=== PATIENT | female | born 1970 | race Caucasian/White ===

== ENCOUNTER 2025-06-23 12:32 | Outpatient (REF) | payer OTHER, SELFPAY ==
[2025-06-23 17:52] LABS: MANUAL DIFF FLAG NO
[2025-06-23 18:08] LABS: Hematocrit 41.5 % (37.0-47.0); Hemoglobin 13.4 g/dl (12.0-16.0); Imm Gran Abs Auto 0.04 X10*3/uL (0.00-0.03); Imm Gran Pct Auto 0.5 % (0.0-0.4); Lymphocytes Absolute Auto 2.8 X10*3/uL (1.2-4.9); Mean Corpuscular HGB Conc 32.3 g/dl (31.0-35.0); Mean Corpuscular Hemoglobin 29.9 pg (27.0-33.0); Mean Corpuscular Volume 92.6 fL (80.0-98.0); NRBC Abs Auto 0.000 X10*3/uL (0.0-0.012); NRBC Pct Auto 0.0 /100WBC (0.0-0.2); Platelet Count 363 X10*3/uL (160-400); Red Blood Count 4.48 X10*6/uL (4.20-5.50); White Blood Count 8.9 X10*3/uL (4.8-10.8)
[2025-06-23 18:17] LABS: Alanine Aminotransferase 34 U/L (0-31); Albumin Level 3.9 g/dL (3.5-5.0); Alkaline Phosphatase 79 U/L (39-117); Anion Gap 13 (12-20); Aspartate Amino Transferase 23 U/L (5-31); Blood Urea Nitrogen 10 mg/dL (9-16); Calcium 9.5 mg/dL (8.4-10.2); Carbon Dioxide 27 mmol/L (22-29); Chloride 102 mmol/L (96-108); Cholesterol 274 mg/dL (<200); Estimated Glomerular Filt Rate > 60; HDL Cholesterol 60 mg/dL (>40); Potassium 4.3 mmol/L (3.3-5.1); Sodium 138 mmol/L (135-145); Total Protein 7.0 g/dL (6.5-8.0); Triglycerides 194 mg/dL (<150)
== END 2025-06-23 12:33 | disposition home or self-care (01) ==
LOC: HO.WFDLDS 12:32
PROVIDERS: Visit Provider Physician Assistant
DX: Z13.220 Encounter for screening for lipoid disorders (principal); R73.01 Impaired fasting glucose; J45.909 Unspecified asthma, uncomplicated; M17.0 Bilateral primary osteoarthritis of knee; J18.9 Pneumonia, unspecified organism; R06.81 Apnea, not elsewhere classified; Z99.81 Dependence on supplemental oxygen; Z79.899 Other long term (current) drug therapy; Z87.891 Personal history of nicotine dependence; Z80.0 Family history of malignant neoplasm of digestive organs
CPT/HCPCS: 36415; 80053; 80061; 83036; 84443; 85025; 96127; 99202

== ENCOUNTER 2025-06-23 12:32 | Outpatient (AMB) | payer OTHER, SELFPAY ==
--- NOTE | 2025-06-23 12:48 | A.OFFPC_ITS ---
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: No Allergies aspirin Allergy (Mild, Verified 06/23/25 13:18) Hives bupropion (From Wellbutrin) Allergy (Mild, Verified 06/23/25 13:18) Hives lisinopril Allergy (Mild, Verified 06/23/25 13:18) Hives Medication List - Last Reconciled 06/23/25 by Latha Lacy PA-C albuterol sulfate 90 mcg/actuation (Ventolin HFA) 2 puffs inhalation Q4H PRN budesonide-formoterol 80-4.5 mcg/actuation (Symbicort) inhalation fluoxetine 40 mg PO DAILY guaifenesin ER (Mucus Relief ER) 600 mg PO Q12H hydroxyzine HCl 25 mg PO BEDTIME multivitamin 1 tab PO DAILY nicotine 1 patch topical DAILY prednisone mg PO thiamine HCl (vitamin B1) 100 mg PO DAILY Tobacco use date assessed: 06/23/25 Dental Screening Dental Screen Date: 06/23/25 Did you have a dental visit in the last 12 months?: No Did you have a dental problem in the last 6 months where you did not have access to dental care?: No Was dental information given to patient?: Patient declined 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 She recently moved from [place]. Pulm: she has been hospitalized in the past for asthma and pneumonia and most recent episode was this May.. She is o2 dependent. She is on symbicort and albuterol and oxygen at night. She states she was admitted 06/04 to [facility] with respiratory failure, pneumonia and severe asthma. Discharged 06/12 with prednisone and oxygen. Denies hx of copd but was a smoker of 1 ppd x 5 years. quit last year still on nicotine patches. -we do not have any records. 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 Msk: has a hx of OA of bilateral knees. She would like to follow with ortho for injections. Psych: uses hydroxyzine prn insomnia. She is on fluoxetine 40 mg and states it is helpful with cbd and thc. Overall feels anxiety and depression well controlled. 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 Colonoscopy: never had, maternal grandfather had colon ca at 60 PFSH Surgical History (Updated 06/23/25 @ 12:50 by Pratibha Higgins CMA) History of endometrial ablation H/O arthroscopy of right knee Hx of tonsillectomy Family History (Updated 06/23/25 @ 12:51 by Pratibha Higgins CMA) Mother HTN (hypertension) High cholesterol Diabetes Maternal Grandmother Asthma Social History (Updated 06/23/25 @ 12:51 by Pratibha Higgins CMA) Housing: Apartment Alcohol intake: current Patient Tobacco Use Status: Never used Tobacco e-Cigarette/Vaping Use: Never Used Second Hand Smoke Exposure: No Substance Use Type: Marijuana service: No Current occupational status: unemployed Cognitive needs: No Hearing needs: No Vision needs: Yes Questionnaire PHQ-9 Over the last 2 weeks, how often have you been bothered by any of the following problems? 1. Little interest or pleasure in doing things: more than half the days 2. Feeling down, depressed, or hopeless: more than half the days 3. Trouble falling or staying asleep, or sleeping too much: more than half the days 4. Feeling tired or having little energy: more than half the days 5. Poor appetite or overeating: more than half the days 6. Feeling bad about yourself - or that you are a failure or have let yourself or your family down: not at all 7. Trouble concentrating on things, such as reading the newspaper or watching television: more than half the days 8. Moving or speaking so slowly that other people could have noticed. Or the opposite - being so fidgety or restless that you have been moving around a lot more than usual: more than half the days 9. Thoughts that you would be better off or of hurting yourself in some way: not at all Total score: 14 Depression Screening Interpretation: Positive Depression Screening Done: Yes 63725 - PHQ-9 Billing: Yes Source: Developed by Drs. Chung Pinzon, Virginia Raymundo, Jluis Knight and colleagues, with an educational luis from [employer]. Thrive Questionnaire Date Thrive assessed: 06/21/25 I am a: Patient What is your living situation today?: I have a steady place to live Within the past 12 months, did the food you bought not last and you didn't have the money to get more?: Sometimes True Within the past 12 months, did you worry whether your food would run out before you got money to buy more?: Sometimes True Do you have trouble paying for medicines?: Yes Do you have trouble getting transportation to medical appointments?: Yes Do you have trouble paying your heating and electricity bill?: No Do you have trouble taking care of your child, family member or friend?: No Do you have trouble with day-to-day activities such as bathing, preparing meals, shopping, managing finances, etc.?: No Are you currently unemployed and looking for a job?: No Are you interested in more education?: Yes Please select the resources that you would like help with: Transportation Currently or been in a relationship where the following occur: No concerns reported THRIVE Score: 3 AUDIT C Alcohol Use Questionnaire (AUDIT-C) 1. How often do you have a drink containing alcohol?: Monthly or less 2. How many drinks containing alcohol do you have on a typical day when you are drinking?: 1 or 2 3. How often do you have six or more drinks on one occasion?: Never Total Score: 1 HERB-7 AMB Questionnaire HERB-7 Date HERB - 7 assessed: 06/23/25 Feeling nervous, anxious, or on edge: 3 = Nearly every day Not being able to stop or control worryin = Nearly every day Worrying too much about different things: 3 = Nearly every day Trouble relaxin = Nearly every day Being so restless that it is hard to sit still: 3 = Nearly every day Becoming easily annoyed or irritable: 3 = Nearly every day Source: Developed by Drs. Chung Pinzon, Jluis Max and colleagues, with an educational luis from [employer]. EHRB-7 Assessment Billing HERB-7 Assessment Tool: HERB-7 Assessment 72447 Physical exam (Primary Care) Vital Signs: Last Vital Signs Temp 98.2 F 06/23/25 13:09 Pulse 97 06/23/25 13:09 Resp 14 06/23/25 13:09 BP 116/74 06/23/25 13:09 Pulse Ox 97 06/23/25 13:09 Oxygen Delivery Method Room Air 06/23/25 13:09 BMI result Body Mass Index 41.6 Tobacco/Smoking Status: Tobacco use Status Tobacco use date assessed 06/23/25 06/23/25 13:14 Patient Tobacco Use Status Never used Tobacco 06/23/25 13:14 e-Cigarette/Vaping Use Never Used 06/23/25 13:14 PHQ-9: PHQ-9 Score PHQ-9: Total score 14 06/23/25 13:14 Depression Screening Interpretation: Positive Thrive Assessment: Date of Thrive Assessment Date Thrive assessed 06/21/25 06/23/25 12:51 Currently or been in a relationship where the following occur: No concerns repor anna Const Orientation/consciousness: patient oriented x3 HENMT Ears: hearing grossly normal bilaterally Neck Thyroid: Thyroid normal Lymphatic: no lymphadenopathy noted Resp Auscultation: clear to auscultation bilaterally Cardio Rate: regular rate Rhythm: regular rhythm Heart sounds: S1 normal heart sound present and S2 normal heart sound present GI Inspection: Yes normal to inspection Palpation (GI): Soft to palpation and Other GI palpation findings present (nontender, no cva tenderness) Auscultation: normoactive bowel sounds Rectal Exam - Female: deferred Skin General skin exam: no rashes or lesions noted Neuro General: patient oriented x3, gait normal and no focal motor deficits Coding Level of Care Code New Pt Level 4 (79627) Complex EM visit Add On G2211 Diagnoses Severe asthma J45.909 Oxygen dependent Z99.81 Family history of colon cancer Z80.0 Osteoarthritis of knees, bilateral M17.0 Lung infection J18.9 Former smoker Z87.891 Apneic episode R06.81 Additional Codes HERB-7 Assessment Billing - HERB-7 Assessment Tool: HERB-7 Assessment [id number] ([id number]) PHQ-9 - 96320 - PHQ-9 Billing: Yes ([id number]) Assessment & Plan Assessment & Plan (1) Severe asthma: Code(s): J45.909 - Unspecified asthma, uncomplicated Category: Medical Plan: Referral to pulmonology Notes from [facility] requested (2) Oxygen dependent: Code(s): Z99.81 - Dependence on supplemental oxygen Category: Medical Plan: As above (3) Family history of colon cancer: Code(s): Z80.0 - Family history of malignant neoplasm of digestive organs Category: Medical Plan: Referral to GI. Overdue colonoscopy. Asymptomatic (4) Osteoarthritis of knees, bilateral: Code(s): M17.0 - Bilateral primary osteoarthritis of knee Category: Medical Plan: X-rays ordered Referral to ortho (5) Lung infection: Code(s): J18.9 - Pneumonia, unspecified organism Category: Medical Plan: Repeat chest x-ray in a couple weeks to ensure resolution. Patient reports symptom improvement. (6) Former smoker: Code(s): Z87.891 - Personal history of nicotine dependence Category: Social Hx Plan: Continue with the patches (7) Apneic episode: Code(s): R06.81 - Apnea, not elsewhere classified Category: Medical Plan: Home sleep study ordered Orders: Orders Comprehensive Benicia. Panel Fast Today J45.909 - Unspecified asthma, uncomplicated, Z13.220 - Encounter for screening for lipoid disorders, Z99.81 - Dependence on supplemental oxygen Lipid Panel Today J45.909 - Unspecified asthma, uncomplicated, Z13.220 - Encounter for screening for lipoid disorders, Z99.81 - Dependence on supplemental oxygen XR knee LT 2V Today M25.561 - Pain in right knee, M25.562 - Pain in left knee Complete Blood Count Auto Diff Today J45.909 - Unspecified asthma, uncomplicated, Z13.220 - Encounter for screening for lipoid disorders, Z99.81 - Dependence on supplemental oxygen Hemoglobin A1c Today J45.909 - Unspecified asthma, uncomplicated, R73.01 - Impaired fasting glucose, Z13.220 - Encounter for screening for lipoid disorders, Z99.81 - Dependence on supplemental oxygen TSH reflex Free T4 Today J45.909 - Unspecified asthma, uncomplicated, Z13.220 - Encounter for screening for lipoid disorders, Z99.81 - Dependence on supplemental oxygen UA CC w/rflx Micro + Cult Today J45.909 - Unspecified asthma, uncomplicated, R30.0 - Dysuria, Z13.220 - Encounter for screening for lipoid disorders, Z99.81 - Dependence on supplemental oxygen XR chest 2V 2 Weeks J18.9 - Pneumonia, unspecified organism, J45.909 - Unspecified asthma, uncomplicated, Z87.891 - Personal history of nicotine d ependence XR knee RT 2V Today M25.561 - Pain in right knee, M25.562 - Pain in left knee RT home sleep study Today R06.81 - Apnea, not elsewhere classified Referrals Pulmonology Referral J45.909 - Unspecified asthma, uncomplicated, Z99.81 - Dependence on supplemental oxygen M[employer]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
[2025-06-23 13:09] VITALS: BP 116/74; PULSE 97; RESP 14; TEMP 36.8; O2SAT 97; BMI 41.6
== END 2025-06-23 14:10 | disposition home or self-care (01) ==
LOC: HO.HMCFM 12:33
PROVIDERS: Visit Provider Physician Assistant
DX: J45.909 Unspecified asthma, uncomplicated (principal); Z99.81 Dependence on supplemental oxygen; Z80.0 Family history of malignant neoplasm of digestive organs; M17.0 Bilateral primary osteoarthritis of knee; J18.9 Pneumonia, unspecified organism; Z87.891 Personal history of nicotine dependence; R06.81 Apnea, not elsewhere classified